=== PATIENT | female | born 1990 | race Asian ===

== ENCOUNTER 2022-11-12 23:00 | Emergency (ER) | payer BC ==
[~2022-11-12] VITALS: Ht 170.2 cm; Wt 104.3 kg
[2022-11-12 23:41] VITALS: BP 131/83; TEMP 97.5
== END 2022-11-12 23:41 | disposition home or self-care (01) ==
LOC: EDBD 23:00 → ED 23:00
DX: I10 Essential (primary) hypertension (principal)
CPT/HCPCS: 99281

== ENCOUNTER 2023-01-10 21:13 | Emergency (ER) | payer BC ==
[~2023-01-10] VITALS: Ht 170.2 cm; Wt 113.4 kg
[2023-01-10 21:19] VITALS: BP 143/68; TEMP 98.2
== END 2023-01-10 22:12 | disposition home or self-care (01) ==
LOC: ED 21:13
DX: A08.4 Viral intestinal infection, unspecified (principal)
CPT/HCPCS: 87502; 99282

== ENCOUNTER 2023-02-23 03:51 | Emergency (ER) | payer BC ==
[~2023-02-23] VITALS: Ht 170.2 cm; Wt 113.4 kg
[2023-02-23 03:52] VITALS: TEMP 98.2
[2023-02-23 05:40] VITALS: BP 120/68
== END 2023-02-23 05:40 | disposition home or self-care (01) ==
LOC: ED 03:51
DX: J02.9 Acute pharyngitis, unspecified (principal); R51.9 Headache, unspecified; E66.9 Obesity, unspecified
CPT/HCPCS: 87502; 87651; 96372; 99282; J0696

== ENCOUNTER 2023-05-18 08:33 | Outpatient (CLI) | payer BC | END 2023-05-18 19:47 | disposition home or self-care (01) | LOC: US 08:33 | PROVIDERS: ATTEND Internal Medicine | DX: R10.11 Right upper quadrant pain (principal) ==